=== PATIENT | male | born 1950 | race Caucasian/White ===

== ENCOUNTER 2018-09-02 11:38 | Emergency (ER) | payer MEDICARE, BC ==
--- NOTE | 2018-09-02 12:15 | XRAY Report ---
Reason: cough,sob Procedure Date: 09/02/2018 Accession Number: [id number] / [id number] Procedure: XR - Chest 2 View X-Ray CPT Code: 19907 FULL RESULT: EXAM: CHEST RADIOGRAPHY EXAM DATE: 09/02/2018 12:04 PM. CLINICAL HISTORY: Cough, sob. COMPARISON: None. TECHNIQUE: 2 views. FINDINGS: Lungs/Pleura: There is superior right lower lobe opacity suggestive of infiltrate. Mediastinum: Heart and mediastinal contours are unremarkable. Other: None. IMPRESSION: Superior right lower lobe infiltrate. RADIA
[2018-09-02] MEDS ORDERED: AZITHROMYCIN 250 MG TABLET PO STA (12:42)
--- NOTE | 2018-09-02 12:44 | ED Physician Documentation ---
PD HPI URI - Stated complaint Stated Complaint: CONGESTION,COUGH - Chief complaint Chief Complaint: Resp - History obtained from History obtained from: Patient - History of Present Illness Timing - onset: Other (He had a minimally productive cough without shortness of breath for the last 8 days. He had intermittent low-grade fevers. He has no history of heart or lung problems.) Review of Systems Ten Systems: 10 systems reviewed and negative Constitutional: reports: Fever. denies: Chills, Fatigue Nose: denies: Rhinorrhea / runny nose Throat: denies: Sore throat Cardiac: denies: Chest pain / pressure, Palpitations Respiratory: denies: Dyspnea PD PAST MEDICAL HISTORY - Past Medical History Past Medical History: No - Present Medications Home Medications: Ambulatory Orders Medication Instructions Recorded Confirmed Azithromycin 1 tab PO DAILY #4 tablet 09/02/18 guaiFENesin/CODEINE [Robitussin AC] 5 - 10 ml PO Q6H PRN #120 ml 09/02/18 - Allergies Allergies/Adverse Reactions: Allergies Allergy/AdvReac Type Severity Reaction Status Date / Time Penicillins Allergy Unknown Verified 09/02/18 11:45 - Living Situation Living Situation: reports: With spouse/s.o. PD ED PE NORMAL - Vitals Vital signs reviewed: Yes - General General: Alert and oriented X 3, No acute distress - HEENT HEENT: Pharynx benign - Neck Neck: Supple, no meningeal sign, No bony TTP - Cardiac Cardiac: RRR, No murmur - Respiratory Respiratory: No respiratory distress, Clear bilaterally - Abdomen Abdomen: Non tender - Neuro Neuro: Alert and oriented X 3, Normal speech Results - Vitals Vitals: Vital Signs - 24 hr 09/02/18 11:44 Temperature 37.0 C Heart Rate 75 Respiratory 20 Rate Blood Pressure 167/100 H O2 Saturation 97 Oxygen O2 Source Room air - Rads (name of study) 2v chest Radiology: EMP read contemporaneously (superior RLL PNA) Departure - Departure Disposition: 01 Home, Self Care Clinical Impression: Pneumonia Qualifiers: Pneumonia type: due to unspecified organism Laterality: right Lung location: lower lobe of lung Qualified Code(s): J18.1 - Lobar pneumonia, unspecified organism Condition: Good Record reviewed to determine appropriate education?: Yes Instructions: Pneumonia Dc Prescriptions: Azithromycin 1 tab PO DAILY #4 tablet guaiFENesin/CODEINE [Robitussin AC] 5 - 10 ml PO Q6H PRN #120 ml PRN Reason: Cough Comments: Call your doctor to arrange a follow-up appointment, make the next available appointment. In the interim, return anytime if worse or if new symptoms develop. Your blood pressure was elevated today on check into the emergency department. This does not mean that you have hypertension, it is a common phenomenon to come to the emergency department and have elevated blood pressure. I recommend that you see your primary care physician within the week to have it rechecked when you are feeling better.
[2018-09-02 12:58] VITALS: BP 131/96
== END 2018-09-02 12:57 | disposition home or self-care (01) ==
LOC: ED 11:38
DX: J18.1 Lobar pneumonia, unspecified organism (principal); R03.0 Elevated blood-pressure reading, without diagnosis of hypertension
CPT/HCPCS: 71046; 99283; A9270

== ENCOUNTER 2018-10-11 13:40 | Outpatient (CLI) | payer MEDICARE, BC ==
--- NOTE | 2018-10-11 15:29 | XRAY Report ---
Reason: PNEUMONIA Procedure Date: 10/11/2018 Accession Number: [id number] / [id number] Procedure: XR - Chest 2 View X-Ray CPT Code: 21044 FULL RESULT: EXAM: CHEST RADIOGRAPHY EXAM DATE: 10/11/2018 01:58 PM. CLINICAL HISTORY: PNEUMONIA. COMPARISON: CHEST 2 VIEW 09/02/2018 11:59 AM. TECHNIQUE: 2 views. FINDINGS: Lungs/Pleura: No focal opacities evident. No pleural effusion. No pneumothorax. Normal volumes. Mediastinum: Stable cardiomediastinal contour with tortuous aorta. Other: None. IMPRESSION: Radiographically, no evidence of pneumonia at this time. RADIA
== END 2018-10-11 13:41 | disposition home or self-care (01) ==
LOC: DI 13:40
PROVIDERS: ATTEND Internal Medicine
DX: J18.9 Pneumonia, unspecified organism (principal)
CPT/HCPCS: 71046

== ENCOUNTER 2019-01-15 10:00 | Outpatient (CLI) | payer MEDICARE, BC ==
--- NOTE | 2019-01-16 17:22 | XRAY Report ---
Reason: PAIN IN LEFT SHOULDER Procedure Date: 01/15/2019 Accession Number: [id number] / [id number] Procedure: XR - Shoulder 3 View LT CPT Code: FULL RESULT: EXAM: LEFT SHOULDER RADIOGRAPHY. EXAM DATE: 01/15/2019 10:11 AM. CLINICAL HISTORY: Pain in left shoulder. COMPARISON: None. TECHNIQUE: 3 views. FINDINGS: Bones: Normal. No fracture or bone lesion. Joints: The glenohumeral and acromioclavicular joints are normally aligned. Moderate acromioclavicular degenerative changes. Mild glenohumeral degenerative changes. Soft tissues: The visualized hemithorax is unremarkable. No soft tissue swelling. IMPRESSION: Mild to moderate degenerative changes about the shoulder without acute abnormality seen. RADIA
== END 2019-01-15 10:01 | disposition home or self-care (01) ==
LOC: DI 10:00
PROVIDERS: ATTEND Internal Medicine
DX: M19.012 Primary osteoarthritis, left shoulder (principal)

== ENCOUNTER 2020-03-27 12:28 | Emergency (ER) | payer MEDICARE, BC ==
--- NOTE | 2020-03-27 12:44 | ED Physician Documentation ---
PD HPI BACK PAIN - Stated complaint Stated Complaint: BACK PAIN - Chief complaint Chief Complaint: Back Pain - History obtained from History obtained from: Patient - History of Present Illness Timing - onset: Yesterday Timing - duration: Days (1) Timing - details: Abrupt onset, Still present Location: Lower Quality: Pain, Spasm, Sharp Associated symptoms: No: Fever, Weakness, Numbness, Incontinent of urine Worsened by: Lifting (he bent to lift a concrete block and felt abrupt onset of low lumbar pain when stood back up, and this has persisted with spasms too. Ibuprofen without imrpovement. Could not sleep due to pain. No radiation of it to legs. No weakness nor numbness.) Contributing factors: Lifting. No: Trauma, Anticoagulated, Cancer Similar symptoms before: Has not had sx before Recently seen: Not recently seen Review of Systems Constitutional: denies: Fever, Chills Nose: denies: Rhinorrhea / runny nose, Congestion Throat: denies: Sore throat Respiratory: denies: Cough GI: denies: Abdominal Pain, Nausea, Vomiting, Diarrhea : denies: Incontinent Skin: denies: Rash, Lesions Neurologic: denies: Focal weakness, Numbness PD PAST MEDICAL HISTORY - Past Medical History Cardiovascular: Hypertension Neuro: None Endocrine/Autoimmune: Type 2 diabetes GI: None - Past Surgical History Past Surgical History: No - Present Medications Home Medications: Ambulatory Orders Medication Instructions Recorded Confirmed HYDROcod/ACETAM 5/325 [[place] 5/325] 1 ea PO Q6H PRN #20 tablet 03/27/20 Semaglutide [Ozempic] 03/27/20 03/27/20 Valsartan [Diovan] 03/27/20 cloNIDine [Catapres] 03/27/20 metFORMIN [Glucophage] 03/27/20 tiZANidine [Zanaflex] 4 mg PO Q8H PRN #25 tablet 03/27/20 - Allergies Allergies/Adverse Reactions: Allergies Allergy/AdvReac Type Severity Reaction Status Date / Time Penicillins Allergy Unknown Verified 03/27/20 12:34 - Social History Does the pt smoke?: Yes Smoking Status: Current every day smoker Does the pt drink ETOH?: Yes ETOH Use: Liquor Does the pt have substance abuse?: No - Immunizations Immunizations are current?: Yes - POLST Patient has POLST: No PD ED PE NORMAL - Vitals Vital signs reviewed: Yes - General General: Alert and oriented X 3, Well developed/nourished, Other (appears in pain and is guarding ROM of the low back. ) - Cardiac Cardiac: RRR, No murmur - Respiratory Respiratory: Clear bilaterally - Abdomen Abdomen: Soft, Non tender - Back Back: No CVA TTP, Other (tender at mid to lower lumbar without deformity. No rash nor sores. Not really tender at lateral muscles. ) - Derm Derm: Normal color, Warm and dry - Extremities Extremities: No edema, No calf tenderness / cord - Neuro Neuro: Alert and oriented X 3, No motor deficit, No sensory deficit, Normal speech, Other (normal reflexes at the knees. ) Results - Vitals Vitals: Vital Signs - 24 hr 03/27/20 03/27/20 03/27/20 12:33 12:45 13:48 Temperature 35.7 C L 36.2 C L Heart Rate 77 78 75 Respiratory 16 16 16 Rate Blood Pressure 179/97 H 181/100 H 175/104 H O2 Saturation 98 97 97 Oxygen O2 Source Room air - Rads (name of study) lumbar CT Radiology: Prelim report reviewed (no acute fractures. Mild DDD most levels. ), See rad report PD MEDICAL DECISION MAKING - ED course Complexity details: reviewed results (no acute fractures nor acute injury appearance. Mild disc disease noted, c/w age. ), re-evaluated patient (feeling much improved with meds in ER. More relaxed for ROM of the back. ), considered differential (onset pain while lifting. No neuro symptoms. No history of cancer. Concern is abrupt onset, midline pain, and age. Will get imaging. ), d/w patient Departure - Departure Disposition: 01 Home, Self Care Clinical Impression: Lumbar strain Qualifiers: Encounter type: initial encounter Qualified Code(s): S39.012A - Strain of muscle, fascia and tendon of lower back, initial encounter Condition: Stable Record reviewed to determine appropriate education?: Yes Instructions: ED Sprain Strain Lumbar Follow-Up: Maxine Kerr MD [Primary Care Provider] - Prescriptions: HYDROcod/ACETAM 5/325 [[place] 5/325] 1 ea PO Q6H PRN #20 tablet PRN Reason: Pain tiZANidine [Zanaflex] 4 mg PO Q8H PRN #25 tablet PRN Reason: Spasms Comments: Your CT scan shows some arthritic changes and nonspecific mild disc abnormalities which are very common findings on CT scans. There was nothing that appeared acute and certainly no fractures. Presume some strain of the muscles and ligaments in the back. Heat and gentle stretching for the back. Massage or chiropractic are good as well. Use anti-inflammatory such as ibuprofen 3 times a day with food. To that add tizanidine muscle relaxant and hydrocodone pain medicine as needed. Recheck if not improving well over the next 3 to 5 days and resolved within a week or so. Return if worsening. Discharge Date/Time: 03/27/20 14:24
[2020-03-27] MEDS ORDERED: oxyCODONE 5 MG TABLET PO STA (12:53)
[2020-03-27] MEDS ORDERED: KETOROLAC 30 MG/ML VIAL IM STA (12:53)
[2020-03-27] MEDS ORDERED: methocarbamoL 500 MG TABLET PO STA (12:54)
[2020-03-27 13:49] VITALS: BP 175/104
--- NOTE | 2020-03-27 13:58 | CT Report ---
PROCEDURE: LUMBAR SPINE WO INDICATIONS: pain after lifting concrete block; midline pain TECHNIQUE: Noncontrast 3 mm thick sections acquired from the T12 level to the sacrum. Sagittal and coronal refo rmats were constructed. For radiation dose reduction, the following was used: automated exposure co ntrol, adjustment of mA and/or kV according to patient size. COMPARISON: None. FINDINGS: Image quality: Excellent. Bones: There is normal bony alignment. No acute vertebral body compression fractures. No suspiciou s lytic or blastic bony lesions. Central spinal caliber is of normal overall caliber. No pars defec ts. T12-L1: No significant disc bulge. The foramina and central canal are patent. L1-L2: No significant disc bulge. The foramina and central canal are patent. L2-L3: Diffuse disc bulge causes moderate bilateral foraminal stenosis. The central canal is paten t. L3-L4: Diffuse disc bulge causes mild bilateral foraminal stenosis. The central canal is patent. L4-L5: Diffuse disc bulge causes mild bilateral foraminal stenosis. There is ligamentum flavum hype rtrophy. The central canal has mild stenosis. L5-S1: No significant disc bulge. The foramina and central canal are patent. Soft tissues: No retroperitoneal masses or hematomas. The aorta has atherosclerotic calcifications w ith no aneurysmal dilatation or dissection IMPRESSION: 1. No acute abnormality of the lumbar spine. 2. Multilevel diffuse disc bulges with multilevel foraminal and central canal stenosis as above. 3. If there is no contraindication, the discs would be better evaluated with MRI. Reviewed by: Vlad Bliss on 03/27/2020 1:57 PM [facility] Approved by: Vlad Bliss on 03/27/2020 1:57 PM PST Station ID: [id number]
== END 2020-03-27 14:24 | disposition home or self-care (01) ==
LOC: ED 12:28
DX: S39.012A Strain of muscle, fascia and tendon of lower back, initial encounter (principal); X50.0XXA Overexertion from strenuous movement or load, initial encounter; Y93.89 Activity, other specified; M51.26 Other intervertebral disc displacement, lumbar region; M48.061 Spinal stenosis, lumbar region without neurogenic claudication; I10 Essential (primary) hypertension; E11.9 Type 2 diabetes mellitus without complications; Z79.84 Long term (current) use of oral hypoglycemic drugs; F17.200 Nicotine dependence, unspecified, uncomplicated
CPT/HCPCS: 72131; 96372; 99284; A9270

== ENCOUNTER 2020-03-30 08:00 | Outpatient (CLI) | payer MEDICARE, BC ==
[2020-03-30 18:41] LABS: BASOPHILS # (AUTO) 0.1 10^3/uL (0.0-0.1); BASOPHILS % (AUTO) 0.8 %; EOSINOPHILS # (AUTO) 0.4 10^3/uL (0.0-0.7); EOSINOPHILS % (AUTO) 3.6 %; HGB - HEMOGLOBIN 17.1 g/dL (14.0-18.0); LYMPHOCYTES # (AUTO) 1.8 10^3/uL (1.5-3.5); LYMPHOCYTES % (AUTO) 18.9 %; MEAN CORPUSCULAR HEMOGLOBIN 32.8 pg (27.0-31.0); MEAN CORPUSCULAR HGB CONC 33.5 g/dL (32.0-36.0); MEAN CORPUSCULAR VOLUME 97.7 fL (80.0-94.0); MEAN PLATELET VOLUME 10.7 fL (7.4-11.4); MONOCYTES # (AUTO) 0.9 10^3/uL (0.0-1.0); MONOCYTES % (AUTO) 9.5 %; NEUTROPHILS # (AUTO) 6.5 10^3/uL (1.5-6.6); NEUTROPHILS % (AUTO) 66.9 %; PLT - PLATELET COUNT 306 10^3/uL (130-450); RED BLOOD COUNT 5.22 10^6/uL (4.70-6.10); RED CELL DISTRIBUTION WIDTH 12.7 % (12.0-15.0); WHITE BLOOD COUNT 9.8 x10^3/uL (4.8-10.8)
[2020-03-30 19:10] LABS: ALBUMIN 4.2 g/dL (3.2-5.5); ALBUMIN/GLOBULIN RATIO 1.5 (1.0-2.2); ALKALINE PHOSPHATASE 46 IU/L (42-121); ALT ALANINE AMINOTRANSFERASE 21 IU/L (10-60); AST ASPARTATE AMINOTRANSFERASE 18 IU/L (10-42); BILIRUBIN,TOTAL 0.7 mg/dL (0.2-1.0); BUN - BLOOD UREA NITROGEN 17 mg/dL (6-20); CALCIUM 10.1 mg/dL (8.5-10.3); CARBON DIOXIDE - CO2 26 mmol/L (21-32); CHLORIDE 104 mmol/L (101-111); CHOL/HDL RATIO 4.1 (<5.0); CHOLESTEROL 178 mg/dL; CREATININE 1.3 mg/dL (0.6-1.2); GLUCOSE 117 mg/dL (70-100); HDL CHOLESTEROL 43 mg/dL; LDL CHOLESTEROL,CALCULATED 110 mg/dL; LDL/HDL RATIO 2.6 (<3.6); SODIUM 140 mmol/L (135-145); VLDL CHOLESTEROL 25 mg/dL
[2020-03-30 19:16] LABS: CREATININE,URINE 321.6 mg/dL; MICROALBUMIN,URINE 79.1 mg/dL (0-300.0)
[2020-03-31 21:23] LABS: HEMOGLOBIN A1c% 6.6 % (4.27-6.07)
== END 2020-03-30 08:01 | disposition home or self-care (01) ==
LOC: LAB.WCP 08:00
PROVIDERS: ATTEND Nurse Practitioner Family
DX: E11.9 Type 2 diabetes mellitus without complications (principal); I10 Essential (primary) hypertension; N40.0 Benign prostatic hyperplasia without lower urinary tract symptoms
CPT/HCPCS: 36415; 80053; 80061; 82043; 82570; 83036; 83721; 84443; 85025

== ENCOUNTER 2020-04-14 10:47 | Outpatient (CLI) | payer MEDICARE, BC ==
--- NOTE | 2020-04-14 14:19 | CT Report ---
PROCEDURE: Low Dose Lung Cancer Screen INDICATIONS: HX OF SMOKING TECHNIQUE: Noncontrast low-dose 5 mm thick sections acquired from the pulmonary apices to the posterior costophr enic angles. 7 mm thick coronal and sagittal MIP reformats were then acquired. For radiation dose r eduction, the following was used: automated exposure control, adjustment of mA and/or kV according t o patient size. COMPARISON: None. FINDINGS: Image quality: Excellent. Lungs and pleura: Question 4 mm pulmonary nodule versus vessel on end, left upper lobe, image 86/4. 2 mm pulmonary nodule, subpleural location, left lower lobe, image 177/4. 2 mm subpleural pulmonary n odule, left lower lobe, image 197/4. Ill-defined 4 mm pulmonary nodule, posterior right upper lobe, i mage 48/4. 3 mm pulmonary nodule, possibly calcified, right upper lobe, image 68/4. 2 mm pleural-base d pulmonary nodule, right lung base, image 137/4. Mediastinum: Heart size is normal. No pericardial effusion. No mediastinal adenopathy by size crit eria. Thoracic aorta and central pulmonary arteries are normal in size. Esophagus is normal in kojo sujatha. No hiatal hernia. Bones and chest wall: No suspicious bony lesions. No vertebral body compression fractures. No axil liyah or supraclavicular adenopathy by size criteria. The thyroid is normal in size. Abdomen: Visualized upper abdomen solid organs and bowel loops appear normal in the absence of contr ast. IMPRESSION: 1. LungRads Category 2: Benign appearance or behavior-nodules with a very low likelihood of becoming a clinically active cancer due to size or lack of growth. Multiple 4 mm or less pulmonary nodules saul aterally. 2. Annual follow-up low-dose noncontrast CT of the chest is recommended for lung cancer screening. Reviewed by: Joe Romano MD on 04/14/2020 2:17 PM PST Approved by: Joe Romano MD on 04/14/2020 2:17 PM PST Station ID: [id number]
== END 2020-04-14 10:48 | disposition home or self-care (01) ==
LOC: DI 10:47
PROVIDERS: ATTEND Nurse Practitioner Family
DX: Z12.2 Encounter for screening for malignant neoplasm of respiratory organs (principal); Z87.891 Personal history of nicotine dependence; R91.8 Other nonspecific abnormal finding of lung field
CPT/HCPCS: G0297 ×2

== ENCOUNTER 2020-05-08 08:30 | Emergency (ER) | payer MEDICARE, BC ==
--- NOTE | 2020-05-08 08:42 | ED Physician Documentation ---
PD HPI BACK PAIN - Stated complaint Stated Complaint: BACK PAIN - History obtained from History obtained from: Patient - History of Present Illness Timing - onset: How many days ago (2-3) Timing - duration: Days (2-3) Timing - details: Abrupt onset, Still present, Waxing and waning Location: Mid, Lower, Left Quality: Sharp, Other (stabbing from flank down to iliac crest area, just on left.) Associated symptoms: No: Fever, Weakness, Numbness, Incontinent of urine Improves with: Position (feels better lying on right side.). No: Rest Worsened by: Movement, Other (hurts most when lying on left side). No: Palpation Contributing factors: No: Lifting (no recurrent injury but had low back pain after lifting a month ago, had improved.), Twisting Similar symptoms before: Diagnosis (had more central back pain a month ago after lifting concrete block, felt musculoskeletal. with normal lumbar CT at that time. He says got better within few days of starting meds.) Recently seen: Clinic (office for chest pain few weeks ago, and had chest CT that was okay.), Emergency Dept (a month ago for back pain, with CT lumbar without acute findings.) Review of Systems Constitutional: denies: Fever, Chills Nose: denies: Rhinorrhea / runny nose, Congestion Throat: denies: Sore throat Respiratory: denies: Cough GI: denies: Abdominal Pain, Nausea, Vomiting, Diarrhea, Bloody / black stool : denies: Dysuria, Frequency Skin: denies: Rash, Lesions Neurologic: denies: Generalized weakness, Focal weakness, Numbness, Near syncope PD PAST MEDICAL HISTORY - Past Medical History Cardiovascular: Hypertension Neuro: None Endocrine/Autoimmune: Type 2 diabetes GI: None - Past Surgical History Past Surgical History: No - Present Medications Home Medications: Ambulatory Orders Medication Instructions Recorded Confirmed Semaglutide [Ozempic] 03/27/20 03/27/20 Valsartan [Diovan] 03/27/20 cloNIDine [Catapres] 03/27/20 metFORMIN [Glucophage] 03/27/20 HYDROcod/ACETAM 5/325 [[place] 5/325] 1 ea PO Q6H PRN #20 tablet 05/08/20 Losartan [Cozaar] 50 mg PO DAILY 05/08/20 05/08/20 Tamsulosin HCl [Flomax] 05/08/20 dexAMETHasone [Decadron] 4 mg PO DAILY #5 tablet 05/08/20 tiZANidine [Zanaflex] 4 mg PO Q8H PRN #25 tablet 05/08/20 - Allergies Allergies/Adverse Reactions: Allergies Allergy/AdvReac Type Severity Reaction Status Date / Time Penicillins Allergy Unknown Verified 05/08/20 08:50 - Social History Does the pt smoke?: Yes Smoking Status: Current every day smoker Does the pt drink ETOH?: Yes Does the pt have substance abuse?: No - Immunizations Immunizations are current?: Yes - POLST Patient has POLST: No PD ED PE NORMAL - Vitals Vital signs reviewed: Yes - General General: Alert and oriented X 3, Well developed/nourished, Other (does appear uncomfortable, particularly lying flat or to the left. ) - Cardiac Cardiac: RRR, No murmur - Respiratory Respiratory: Clear bilaterally - Abdomen Abdomen: Normal bowel sounds, Soft, Non tender, Non distended, No organomegaly - Male Male : Deferred - Rectal Rectal: Deferred - Back Back: No CVA TTP, No spinal TTP (has some tender in left muscles adjacent to upper lumbar. No point tenderness. ) - Derm Derm: Normal color, Warm and dry, No rash - Extremities Extremities: No tenderness to palpate, Normal ROM s pain, No edema, No calf tenderness / cord - Neuro Neuro: No motor deficit, No sensory deficit, Other (normal reflexes at knees. ) Results - Vitals Vitals: Vital Signs - 24 hr 05/08/20 08:47 Temperature 36.9 C Heart Rate 89 Respiratory 18 Rate Blood Pressure 181/111 H O2 Saturation 99 Oxygen O2 Source Room air - Labs Labs: Laboratory Tests 05/08/20 05/08/20 05/08/20 08:42 09:20 09:20 WBC 7.1 RBC 5.14 Hgb 16.6 Hct 49.0 MCV 95.3 H MCH 32.3 H MCHC 33.9 RDW 12.9 Plt Count 280 MPV 9.8 Neut # (Auto) 4.9 Lymph # (Auto) 1.3 L Dickson # (Auto) 0.6 Eos # (Auto) 0.2 Baso # (Auto) 0.1 Absolute Nucleated RBC 0.00 Nucleated RBC % 0.0 Sodium 138 Potassium 4.4 Chloride 106 Carbon Dioxide 21 Anion Gap 11.0 BUN 13 Creatinine 1.1 Estimated GFR (MDRD) 66 L Glucose 175 H Calcium 9.6 Total Bilirubin 0.7 AST 21 ALT 27 Alkaline Phosphatase 49 Total Protein 6.6 L Albumin 4.3 Globulin 2.3 Albumin/Globulin Ratio 1.9 Urine Color YELLOW Urine Clarity CLEAR Urine pH 5.5 Ur Specific [place] 1.025 Urine Protein 100 H Urine Glucose (UA) NEGATIVE Urine Ketones NEGATIVE Urine Occult Blood NEGATIVE Urine Nitrite NEGATIVE Urine Bilirubin NEGATIVE Urine Urobilinogen 0.2 (NORMAL) Ur Leukocyte Esterase NEGATIVE Urine RBC None Seen Urine WBC 0-3 Ur Squamous Epith Cells RARE Squamous Urine Bacteria Rare Urine Casts 0-2 Granular Casts Ur Microscopic Review INDICATED Urine Culture Comments NOT INDICATED - Rads (name of study) abd/pelvic CT Radiology: Prelim report reviewed (no acute process. no stones nor uropathy. Else normal as well. ), See rad report PD MEDICAL DECISION MAKING - ED course Complexity details: reviewed results (CT done inadvertently without contrast. Will wait for reading. Can rescan with if any concerns from reading. ), considered differential (consider musculoskeletal, kidney stone high likelihood, vascular, other abd process. Recent lumbar CT does not show enough of abd field of view to exclude matters right now. Pain has positional and movement components.), d/w patient Departure - Departure Disposition: 01 Home, Self Care Clinical Impression: Left lumbar pain Qualifiers: Chronicity: acute Sciatica presence: without sciatica Qualified Code(s): M54.5 - Low back pain Condition: Stable Record reviewed to determine appropriate education?: Yes Instructions: ED Low Back Pain Injury Follow-Up: PEDRITO PINON, MSN, HEALTH INFORMATION TECHNOLOGIST [Primary Care Provider] - Prescriptions: dexAMETHasone [Decadron] 4 mg PO DAILY #5 tablet HYDROcod/ACETAM 5/325 [[place] 5/325] 1 ea PO Q6H PRN #20 tablet PRN Reason: Pain tiZANidine [Zanaflex] 4 mg PO Q8H PRN #25 tablet PRN Reason: Spasms Comments: Your blood tests and urine tests are without any signs of infection nor acute changes. Your CT scan does not show any kidney stones, vascular process, or other intestinal problems. Your low back has similar arthritic changes but no acute fractures or abnormalities. At this point would presume musculoskeletal pain in the back. We can treated with anti-inflammatories as well as muscle relaxant and pain medicine, similar to March. See if this will improve over the next few days. Follow-up with your primary care if not improved over the next several days or so. Return if worsening or other symptoms develop such as abdominal pain, stool changes (diarrhea, bleeding, etc), rash, fever, other concerns. The [facility] pharmac[facility] are open today 9-5.
[2020-05-08] MEDS ORDERED: KETOROLAC 30 MG/ML VIAL IVP STA (08:43)
[2020-05-08] MEDS ORDERED: SODIUM CHLORIDE 0.9% 1,000 ML IV STA (08:43)
[2020-05-08] MEDS ORDERED: MORPHINE 2 MG/ML CARPUJECT IVP STA (08:43)
[2020-05-08 09:05] LABS: BILIRUBIN,URINE NEGATIVE (NEGATIVE); GLUCOSE, URINE (UA) NEGATIVE (NEGATIVE); KETONES,URINE (UA) NEGATIVE (NEGATIVE); LEUKOCYTE ESTERASE, URINE NEGATIVE (NEGATIVE); NITRITE,URINE NEGATIVE (NEGATIVE); OCCULT BLOOD,URINE NEGATIVE (NEGATIVE); PH,URINE 5.5 PH (5.0-7.5); PROTEIN,URINE 100 mg/dL (NEGATIVE); UROBILINOGEN,URINE 0.2 (NORMAL) E.U./dL (NORMAL)
[2020-05-08 09:07] LABS: CLARITY,URINE CLEAR (CLEAR)
[2020-05-08 09:16] LABS: BACTERIA,URINE Rare /HPF (None Seen); RBC,URINE None Seen /HPF (0-5); SQUAMOUS EPITHELIAL CELL,UR RARE Squamous (<= Few)
[2020-05-08 09:25] LABS: BASOPHILS # (AUTO) 0.1 10^3/uL (0.0-0.1); BASOPHILS % (AUTO) 0.7 %; EOSINOPHILS # (AUTO) 0.2 10^3/uL (0.0-0.7); EOSINOPHILS % (AUTO) 2.7 %; HGB - HEMOGLOBIN 16.6 g/dL (14.0-18.0); LYMPHOCYTES # (AUTO) 1.3 10^3/uL (1.5-3.5); LYMPHOCYTES % (AUTO) 18.8 %; MEAN CORPUSCULAR HEMOGLOBIN 32.3 pg (27.0-31.0); MEAN CORPUSCULAR HGB CONC 33.9 g/dL (32.0-36.0); MEAN CORPUSCULAR VOLUME 95.3 fL (80.0-94.0); MEAN PLATELET VOLUME 9.8 fL (7.4-11.4); MONOCYTES # (AUTO) 0.6 10^3/uL (0.0-1.0); MONOCYTES % (AUTO) 8.6 %; NEUTROPHILS # (AUTO) 4.9 10^3/uL (1.5-6.6); NEUTROPHILS % (AUTO) 68.8 %; PLT - PLATELET COUNT 280 10^3/uL (130-450); RED BLOOD COUNT 5.14 10^6/uL (4.70-6.10); RED CELL DISTRIBUTION WIDTH 12.9 % (12.0-15.0); WHITE BLOOD COUNT 7.1 x10^3/uL (4.8-10.8)
[2020-05-08 09:38] LABS: ALBUMIN 4.3 g/dL (3.2-5.5); ALBUMIN/GLOBULIN RATIO 1.9 (1.0-2.2); BILIRUBIN,TOTAL 0.7 mg/dL (0.2-1.0); CALCIUM 9.6 mg/dL (8.5-10.3); CREATININE 1.1 mg/dL (0.6-1.2); TOTAL PROTEIN 6.6 g/dL (6.7-8.2)
--- NOTE | 2020-05-08 09:51 | CT Report ---
PROCEDURE: Abdomen/Pelvis WO INDICATIONS: LT FLANK TO ABD PAIN FOR 3 DAYS TECHNIQUE: Noncontrast 5 mm thick sections acquired from the diaphragms to the symphysis. 5 mm coronal and sagi ttal reformats were then performed. For radiation dose reduction, the following was used: automated exposure control, adjustment of mA and/or kV according to patient size. COMPARISON: Correlation is made with the prior lumbar spine CT, 03/27/2020. FINDINGS: Image quality: Excellent. ABDOMEN: Lung bases: Lung bases are clear. Heart size is normal. A small hiatal hernia is incidentally note d. Solid organs: Liver and spleen are normal in size. Within the central liver, there is a focal low-de nsity lesion seen, as on series 3 image 37, which likely represents a cyst or hemangioma. Gallbladder wall does not appear thickened. Pancreas is normal in contours. No adrenal nodules. Calcificati on is seen of the lateral limb of the right adrenal gland, as on series 3 image 39. Kidneys are sixto l in size, without hydronephrosis or nephrolithiasis. Peritoneum and bowel: Unenhanced bowel loops demonstrate normal wall thickness and caliber. No free fluid or air. An apparent normal stump of the appendix can be seen. Please correlate with known ruba ent history. Diverticulosis can be seen, without brenda findings of active diverticulitis. Nodes and vessels: No retroperitoneal or mesenteric adenopathy by size criteria. Aorta and inferior vena cava are normal in caliber. Atherosclerotic calcification is seen. Miscellaneous: No ventral hernias. PELVIS: Genitourinary: Bladder wall thickness is normal. Miscellaneous: No inguinal adenopathy. There is a left-sided inguinal hernia seen, which primarily contains fat, although a small amount of nondilated small bowel can be seen proximally. Bones: No suspicious bony lesions. No vertebral body compression fractures. Age-appropriate degener ative changes are seen. IMPRESSION: Negative for stones or obstructive uropathy. There is a left inguinal hernia, which contains fat and a small amount of nondilated small bowel. Incidental note is made of: Small hiatal hernia Apparent liver cyst or hemangioma Apparent appendiceal stump. Diverticulosis, without active diverticulitis Reviewed by: Kumar Wharton MD on 05/08/2020 8:49 AM [place] Approved by: Kumar Wharton MD on 05/08/2020 8:49 AM [facility] Station ID: [id number]
[2020-05-08] MEDS ORDERED: DEXAMETHASONE 10 MG/ML VIAL IVP STA (10:07)
[2020-05-08 10:12] VITALS: BP 176/97
== END 2020-05-08 10:24 | disposition home or self-care (01) ==
LOC: ED 08:30
DX: M54.5 Low back pain (principal); I10 Essential (primary) hypertension; E11.9 Type 2 diabetes mellitus without complications; Z79.84 Long term (current) use of oral hypoglycemic drugs; F17.200 Nicotine dependence, unspecified, uncomplicated
CPT/HCPCS: 36415; 74176; 80053; 81001; 81003; 85025; 87086; 96361; 96374; 96375; 99284

== ENCOUNTER 2020-07-23 13:30 | Outpatient (CLI) | payer MEDICARE, BC ==
[2020-07-23 14:01] LABS: CALCIUM 10.7 mg/dL (8.5-10.3); CREATININE 1.2 mg/dL (0.6-1.2); POTASSIUM 4.5 mmol/L (3.5-5.0)
[2020-07-23 14:32] LABS: MICROALBUM/CREATININE RATIO,UR 462.9 ug/mg (<30.0); MICROALBUMIN,URINE 132.4 mg/dL (0-300.0)
[2020-07-23 19:52] LABS: ESTIMATED AVERAGE GLUCOSE 146 mg/dL (70-100); HEMOGLOBIN A1c% 6.7 % (4.27-6.07)
== END 2020-07-23 13:31 | disposition home or self-care (01) ==
LOC: LAB 13:30
PROVIDERS: ATTEND Nurse Practitioner Family
DX: E11.9 Type 2 diabetes mellitus without complications (principal)
CPT/HCPCS: 36415; 80048; 82043; 82570; 83036

== ENCOUNTER 2020-10-21 08:46 | Outpatient (CLI) | payer MEDICARE, BC ==
[2020-10-21 09:20] LABS: POTASSIUM 4.6 mmol/L (3.5-5.0)
[2020-10-21 09:35] LABS: CREATININE,URINE 184.1 mg/dL; MICROALBUM/CREATININE RATIO,UR 430.2 ug/mg (<30.0); MICROALBUMIN,URINE 79.2 mg/dL (0-300.0)
[2020-10-21 12:07] LABS: ESTIMATED AVERAGE GLUCOSE 146 mg/dL (70-100); HEMOGLOBIN A1c% 6.7 % (4.27-6.07)
== END 2020-10-21 08:47 | disposition home or self-care (01) ==
LOC: LAB 08:46
PROVIDERS: ATTEND Nurse Practitioner Family
DX: E11.9 Type 2 diabetes mellitus without complications (principal)
CPT/HCPCS: 36415; 80048; 82043; 82570; 83036

== ENCOUNTER 2020-12-14 16:42 | Emergency (ER) | payer MEDICARE, BC ==
[2020-12-14] MEDS ORDERED: KETOROLAC 60 MG/2 ML VIAL IM STA (17:44)
[2020-12-14] MEDS ORDERED: DEXAMETHASONE 10 MG/ML VIAL PO STA (17:44)
[2020-12-14] MEDS ORDERED: CHERRY SYRUP 10 ML UDC PO ONE (17:44)
--- NOTE | 2020-12-14 17:44 | ED Physician Documentation ---
PD HPI BACK PAIN - Stated complaint Stated Complaint: BACK MUSCLE SPASMS - Chief complaint Chief Complaint: Back Pain - History obtained from History obtained from: Patient - History of Present Illness Timing - onset: Today Timing - duration: Days (1) Timing - details: Gradual onset Pain level max: 5 Pain level now: 4 Location: Lower, Left Quality: Pain, Spasm, Similar to prior episodes Associated symptoms: No: Fever, Weakness, Numbness, Incontinent of urine, Unable to urinate, Hematuria, Incontinent of stool Improves with: Rest Worsened by: Movement Contributing factors: No: Lifting, Twisting, Trauma, Anticoagulated, Cancer, IVDA Recently seen: Not recently seen - Additional information Additional information: Patient is a 70-year-old male with lower left back pain. Similar to prior episodes. No recent injuries. Worse with movement, better with rest. Increased today. Has had CT scans and full work-ups in the past with no cause found. Patient states resolved in a few days with pain medication and muscle relaxants last time. No fevers. No chills. No numbness or tingling. No loss of bowel or bladder control. Review of Systems Constitutional: denies: Fever Respiratory: denies: Cough GI: denies: Abdominal Pain, Vomiting, Diarrhea : denies: Dysuria, Frequency, Hesitancy, Incontinent, Hematuria Skin: denies: Rash Neurologic: denies: Focal weakness PD PAST MEDICAL HISTORY - Past Medical History Past Medical History: Yes Cardiovascular: Hypertension Neuro: None Endocrine/Autoimmune: Type 2 diabetes GI: None - Past Surgical History Past Surgical History: No - Present Medications Home Medications: Ambulatory Orders Medication Instructions Recorded Confirmed Semaglutide [Ozempic] 03/27/20 03/27/20 Valsartan [Diovan] 03/27/20 cloNIDine [Catapres] 03/27/20 metFORMIN [Glucophage] 03/27/20 HYDROcod/ACETAM 5/325 [[place] 5/325] 1 ea PO Q6H PRN #20 tablet 05/08/20 Losartan [Cozaar] 50 mg PO DAILY 05/08/20 05/08/20 Tamsulosin HCl [Flomax] 05/08/20 dexAMETHasone [Decadron] 4 mg PO DAILY #5 tablet 05/08/20 tiZANidine [Zanaflex] 4 mg PO Q8H PRN #25 tablet 05/08/20 HYDROcod/ACETAM 5/325 [[place] 5/325] 1 - 2 ea PO Q6H PRN #14 tablet 12/14/20 Meloxicam [Mobic] 7.5 mg PO BID PRN #20 tablet 12/14/20 methocarbamoL [Robaxin] 500 mg PO Q6H PRN #20 tablet 12/14/20 - Allergies Allergies/Adverse Reactions: Allergies Allergy/AdvReac Type Severity Reaction Status Date / Time Penicillins Allergy Unknown Verified 12/14/20 16:53 - Social History Does the pt smoke?: Yes Smoking Status: Current every day smoker Does the pt drink ETOH?: Yes Does the pt have substance abuse?: No - Immunizations Immunizations are current?: Yes - POLST Patient has POLST: No PD ED PE NORMAL - Vitals Vital signs reviewed: Yes - General General: Alert and oriented X 3, No acute distress - HEENT HEENT: PERRL, Moist mucous membranes - Neck Neck: Supple, no meningeal sign - Cardiac Cardiac: RRR, Strong equal pulses - Respiratory Respiratory: No respiratory distress, Clear bilaterally - Abdomen Abdomen: Soft, Non tender, Non distended - Back Back: No spinal TTP (No midline tenderness to palpation or percussion. No step- off or deformity. Mild spasm left lower lumbar.) - Derm Derm: Warm and dry - Extremities Extremities: No edema, No calf tenderness / cord - Neuro Neuro: Alert and oriented X 3, No motor deficit, No sensory deficit, Other (Normal bilateral lower extremity patellar and ankle jerk reflexes. Normal great toe extension bilaterally. no saddle anesthesia) - Psych Psych: Normal mood, Normal affect Results - Vitals Vitals: Vital Signs - 24 hr 12/14/20 12/14/20 16:51 18:11 Temperature 36.2 C L 36.5 C Heart Rate 89 82 Respiratory 16 16 Rate Blood Pressure 151/92 H 169/98 H O2 Saturation 97 97 Oxygen O2 Source Room air PD MEDICAL DECISION MAKING - ED course Complexity details: reviewed old records, considered differential (No cauda equina, no spinal epidural abscess, no fracture, no aortic dissection or evidence of aneursym rupture), d/w patient, d/w family ED course: Patient with nontraumatic back spasm. Similar to prior episodes. We will place on pain medication muscle relaxants for home. No evidence of cauda equina, epidural abscess. No evidence of fracture. No falls. No trauma. Ambulating well. Patient counseled regarding signs and symptoms for which I believe and urgent re-evaluation would be necessary. Patient with good understanding of and agreement to plan and is comfortable going home at this time This document was made in part using voice recognition software. While efforts are made to proofread this document, sound alike and grammatical errors may occur. Departure - Departure Disposition: 01 Home, Self Care Clinical Impression: Back spasm Condition: Good Instructions: ED Spasm Back No Trauma Follow-Up: your,doctor in 1 week [Other] Prescriptions: Meloxicam [Mobic] 7.5 mg PO BID PRN #20 tablet PRN Reason: Pain HYDROcod/ACETAM 5/325 [[place] 5/325] 1 - 2 ea PO Q6H PRN #14 tablet PRN Reason: Pain methocarbamoL [Robaxin] 500 mg PO Q6H PRN #20 tablet PRN Reason: muscle spasm Comments: You can use the pain medication as needed. Follow-up with your doctor for further care. This should improve over the next few days. I am prescribing a short course of narcotic pain medication for you. These are potentially dangerous and addictive medications that should be used carefully. These medications may constipate you. Take an ufvy-djy-fuvyvub stool softener (docusate) twice daily with plenty of water while taking these medications. If you go 24 hours without a bowel movement, take lbuk-yig-jupjwek miralax, per package instructions. Do not drink or drive while taking these medications. If you received narcotic or sedating medications while in the emergency department, do not drive for 24 hours. Store this medication in a safe, secure place and out of reach of children. It is a violation of federal law to give or sell this medication to another person or to use in a manner other than prescribed. The ED will not refill narcotic prescriptions, including prescriptions lost or stolen. To dispose of unwanted medications: 1. [facility] [address] in [place] has a medication drop box. They accept prescription medications (in pill form) Monday through Monday 9:00 a.m. to 5:00 p.m. 2. [facility] [employer] [facility] accepts prescription medications (in pill form only) for disposal year round. Call for more information. 3. Contact the [facility] for the next [facility] sponsored prescription drug collection event. , [phone], or [phone]; Discharge Date/Time: 12/14/20 18:22
[2020-12-14 18:12] VITALS: BP 169/98
== END 2020-12-14 18:22 | disposition home or self-care (01) ==
LOC: ED 16:42
DX: M62.830 Muscle spasm of back (principal); I10 Essential (primary) hypertension; E11.9 Type 2 diabetes mellitus without complications; F17.200 Nicotine dependence, unspecified, uncomplicated; Z79.84 Long term (current) use of oral hypoglycemic drugs
CPT/HCPCS: 96372; 99283; 99284; A9270

== ENCOUNTER 2021-02-12 10:44 | Outpatient (CLI) | payer MEDICARE, BC ==
[2021-02-12 18:08] LABS: BASOPHILS # (AUTO) 0.1 10^3/uL (0.0-0.1); EOSINOPHILS # (AUTO) 0.4 10^3/uL (0.0-0.7); EOSINOPHILS % (AUTO) 4.6 %; HGB - HEMOGLOBIN 16.6 g/dL (14.0-18.0); LYMPHOCYTES # (AUTO) 1.8 10^3/uL (1.5-3.5); LYMPHOCYTES % (AUTO) 20.6 %; MEAN CORPUSCULAR HGB CONC 33.2 g/dL (32.0-36.0); MEAN CORPUSCULAR VOLUME 96.5 fL (80.0-94.0); MEAN PLATELET VOLUME 10.7 fL (7.4-11.4); MONOCYTES # (AUTO) 0.7 10^3/uL (0.0-1.0); MONOCYTES % (AUTO) 7.9 %; NEUTROPHILS # (AUTO) 5.7 10^3/uL (1.5-6.6); NEUTROPHILS % (AUTO) 65.6 %; PLT - PLATELET COUNT 339 10^3/uL (130-450); RED BLOOD COUNT 5.18 10^6/uL (4.70-6.10); WHITE BLOOD COUNT 8.7 x10^3/uL (4.8-10.8)
[2021-02-12 18:43] LABS: BILIRUBIN,URINE NEGATIVE (NEGATIVE); GLUCOSE, URINE (UA) NEGATIVE (NEGATIVE); KETONES,URINE (UA) NEGATIVE (NEGATIVE); LEUKOCYTE ESTERASE, URINE NEGATIVE (NEGATIVE); NITRITE,URINE NEGATIVE (NEGATIVE); OCCULT BLOOD,URINE NEGATIVE (NEGATIVE); PH,URINE 5.5 PH (5.0-7.5); PROTEIN,URINE 100 mg/dL (NEGATIVE); UROBILINOGEN,URINE 0.2 (NORMAL) E.U./dL (NORMAL)
[2021-02-12 18:51] LABS: CLARITY,URINE CLOUDY (CLEAR)
[2021-02-12 18:58] LABS: ALBUMIN 4.4 g/dL (3.2-5.5); ALBUMIN/GLOBULIN RATIO 1.9 (1.0-2.2); ALKALINE PHOSPHATASE 54 IU/L (42-121); ALT ALANINE AMINOTRANSFERASE 19 IU/L (10-60); AST ASPARTATE AMINOTRANSFERASE 17 IU/L (10-42); BILIRUBIN,TOTAL 0.5 mg/dL (0.2-1.0); BUN - BLOOD UREA NITROGEN 24 mg/dL (6-20); CARBON DIOXIDE - CO2 22 mmol/L (21-32); CHLORIDE 107 mmol/L (101-111); CHOL/HDL RATIO 4.2 (<5.0); CHOLESTEROL 194 mg/dL; CREATININE 1.1 mg/dL (0.6-1.2); GFR - MDRD 66 (>89); GLUCOSE 154 mg/dL (70-100); HDL CHOLESTEROL 46 mg/dL; LDL CHOLESTEROL,CALCULATED 129 mg/dL; LDL/HDL RATIO 2.8 (<3.6); SODIUM 140 mmol/L (135-145); TOTAL PROTEIN 6.7 g/dL (6.7-8.2); TRIGLYCERIDES 93 mg/dL; VLDL CHOLESTEROL 19 mg/dL
[2021-02-12 18:59] LABS: AMORPHOUS SEDIMENT,UR Marked /LPF; BACTERIA,URINE None Seen /HPF (None Seen); RBC,URINE None Seen /HPF (0-5); SQUAMOUS EPITHELIAL CELL,UR NONE SEEN (<= Few); WBC,URINE 0-3 /HPF (0-3)
[2021-02-12 19:08] LABS: CREATININE,URINE 199.8 mg/dL; MICROALBUM/CREATININE RATIO,UR 258.8 ug/mg (<30.0); MICROALBUMIN,URINE 51.7 mg/dL (0-300.0)
[2021-02-12 20:13] LABS: ESTIMATED AVERAGE GLUCOSE 148 mg/dL (70-100); HEMOGLOBIN A1c% 6.8 % (4.27-6.07)
== END 2021-02-12 23:59 | disposition home or self-care (01) ==
LOC: LAB.WCP 10:44
PROVIDERS: ATTEND Nurse Practitioner
DX: E11.9 Type 2 diabetes mellitus without complications (principal); I10 Essential (primary) hypertension; R80.9 Proteinuria, unspecified
CPT/HCPCS: 36415; 80053; 80061; 81001; 82043; 82570; 83036; 83721; 85025; 87086

== ENCOUNTER 2021-06-10 11:49 | Emergency (ER) | payer MEDICARE, BC ==
[2021-06-10 11:57] VITALS: BP 143/89
--- NOTE | 2021-06-10 12:23 | XRAY Report ---
PROCEDURE: Chest 1 View X-Ray INDICATIONS: cough for one month TECHNIQUE: One view of the chest was acquired. COMPARISON: Lung cancer screening chest CT 04/14/2020. CXR 10/11/2018. FINDINGS: Surgical changes and devices: None. Lungs and pleura: No pleural effusions or pneumothorax. Lungs are clear. Mediastinum: Mediastinal contours appear unchanged. Heart size is normal. Bones and chest wall: No suspicious bony lesions. Overlying soft tissues appear unremarkable. IMPRESSION: No acute cardiopulmonary abnormality. Reviewed by: Eric Hurt MD on 06/10/2021 12:22 PM PST Approved by: Eric Hurt MD on 06/10/2021 12:22 PM [facility] Station ID: [id number]
--- NOTE | 2021-06-10 14:43 | ED Physician Documentation ---
History of Present Illness - Stated complaint Stated Complaint: COUGH,CHILLS - Chief complaint Chief Complaint: Resp - Additonal information Additional information: 71-year-old male presents emergency department for evaluation of a mostly dry cough that began about 1 month ago. It is fairly persistent throughout the day though decreased at nighttime. There have been no fevers. Denies exertional chest pain dyspnea or shortness of air. He is a daily tobacco user. He denies that he is ever been diagnosed with asthma or COPD. He does have a history of hypertension. Fully vaccinated for COVID-19. Patient states that he has taken some leftover codeine syrup which improves the cough until it wears off. He comes to the emergency department because he states it is too difficult to get an appointment with his primary care provider. Review of Systems Constitutional: denies: Fever, Chills Eyes: reports: Reviewed and negative Ears: reports: Reviewed and negative Throat: reports: Reviewed and negative Cardiac: reports: Reviewed and negative Respiratory: reports: Cough. denies: Dyspnea, Hemoptysis, Wheezing GI: denies: Abdominal Pain : reports: Reviewed and negative Skin: reports: Reviewed and negative Musculoskeletal: reports: Reviewed and negative Neurologic: reports: Reviewed and negative PD PAST MEDICAL HISTORY - Past Medical History Past Medical History: Yes Cardiovascular: Hypertension Neuro: None Endocrine/Autoimmune: Type 2 diabetes GI: None - Past Surgical History Past Surgical History: No - Present Medications Home Medications: Ambulatory Orders Medication Instructions Recorded Confirmed Semaglutide [Ozempic] 03/27/20 03/27/20 Valsartan [Diovan] 03/27/20 cloNIDine [Catapres] 03/27/20 metFORMIN [Glucophage] 03/27/20 HYDROcod/ACETAM 5/325 [[place] 5/325] 1 ea PO Q6H PRN #20 tablet 05/08/20 Losartan [Cozaar] 50 mg PO DAILY 05/08/20 05/08/20 Tamsulosin HCl [Flomax] 05/08/20 dexAMETHasone [Decadron] 4 mg PO DAILY #5 tablet 05/08/20 tiZANidine [Zanaflex] 4 mg PO Q8H PRN #25 tablet 05/08/20 HYDROcod/ACETAM 5/325 [[place] 5/325] 1 - 2 ea PO Q6H PRN #14 tablet 12/14/20 Meloxicam [Mobic] 7.5 mg PO BID PRN #20 tablet 12/14/20 methocarbamoL [Robaxin] 500 mg PO Q6H PRN #20 tablet 12/14/20 Azithromycin [Zithromax] 0 mg PO DAILY #6 tablet 06/10/21 Benzonatate [Tessalon] 200 mg PO TID PRN #20 cap 06/10/21 - Allergies Allergies/Adverse Reactions: Allergies Allergy/AdvReac Type Severity Reaction Status Date / Time Penicillins Allergy Unknown Verified 06/10/21 11:57 - Social History Does the pt smoke?: Yes Smoking Status: Current every day smoker Does the pt drink ETOH?: Yes Does the pt have substance abuse?: No - Immunizations Immunizations are current?: Yes - POLST Patient has POLST: No PD ED PE NORMAL - General General: Alert and oriented X 3, No acute distress - HEENT HEENT: PERRL - Neck Neck: Supple, no meningeal sign, No adenopathy - Cardiac Cardiac: RRR, No murmur, No gallop, Strong equal pulses - Respiratory Respiratory: No respiratory distress, Clear bilaterally - Abdomen Abdomen: Normal bowel sounds, Soft, Non tender Results - Vitals Vitals: Vital Signs - 24 hr 06/10/21 11:54 Temperature 36.0 C L Heart Rate 79 Respiratory 20 Rate Blood Pressure 143/89 H O2 Saturation 99 Oxygen O2 Source Room air - Rads (name of study) cxr Radiology: Final report received (no acute process) PD MEDICAL DECISION MAKING - ED course Complexity details: reviewed results, re-evaluated patient, considered differential, d/w patient ED course: 71-year-old male presents emergency department for evaluation of a persistent cough that began about 1 month ago. No fevers no nausea or vomiting no chest pain. Chest x-ray is unremarkable. Patient is fully vaccinated though not posted for COVID-19. He is an active daily tobacco user but denies that he carries any history of COPD. Does not use any respiratory medications. Cardiopulmonary auscultation was unremarkable. I discussed the etiology of a more persistent cough with this gentleman that could include [place] inhibitor versus developing COPD. Patient will be discharged with a prescription for azithromycin as well as Tessalon Perles. He is encouraged close follow-up with his primary care doctor. He may benefit from a outpatient CT scan given his active tobaccoism. He would also benefit from pulmonary function testing to evaluate for the development of COPD and/or consideration of initiation of inhalers. Emergent return precautions were otherwise discussed. Departure - Departure Disposition: 01 Home, Self Care Clinical Impression: Cough Condition: Stable Record reviewed to determine appropriate education?: Yes Prescriptions: Benzonatate [Tessalon] 200 mg PO TID PRN #20 cap PRN Reason: Cough Azithromycin [Zithromax] 0 mg PO DAILY #6 tablet Comments: Andrea black are seen in the emergency department today for cough that has been ongoing for about 1 month. You describe it is mostly a dry cough. The chest x- ray does not show an obvious pneumonia. Any cough that goes on this long should be evaluated by primary care provider. However today I am going to start you on a short course of antibiotics for a possible bronchitis. I am also prescribing a medication called Rocio Sorto t o help with the cough. These 2 prescriptions have been sent to the [facility] in [place]. One consideration for prolonged cough is the possible development of COPD especially since you are an active tobacco user. There are also some medications such as [place] inhibitors that can cause a prolonged cough. It is important that you discuss this with your primary care doctor before making any changes to your medication. Schedule an appointment as soon as you are able. If at any point you develop difficulty breathing, have chest pain or fainting episodes then you are to return immediately to the ER for second evaluation.
== END 2021-06-10 14:45 | disposition home or self-care (01) ==
LOC: ED 11:49
DX: R05.9 Cough, unspecified (principal); Z72.0 Tobacco use; I10 Essential (primary) hypertension; E11.9 Type 2 diabetes mellitus without complications; Z79.84 Long term (current) use of oral hypoglycemic drugs
CPT/HCPCS: 71045; 99282; 99284; U0004

== ENCOUNTER 2021-07-20 14:10 | Outpatient (CLI) | payer MEDICARE, BC ==
[2021-07-20 14:45] LABS: ALBUMIN 4.5 g/dL (3.2-5.5); ALBUMIN/GLOBULIN RATIO 1.5 (1.0-2.2); ALKALINE PHOSPHATASE 51 IU/L (42-121); ALT ALANINE AMINOTRANSFERASE 26 IU/L (10-60); AST ASPARTATE AMINOTRANSFERASE 18 IU/L (10-42); BILIRUBIN,TOTAL 0.9 mg/dL (0.2-1.0); BUN - BLOOD UREA NITROGEN 21 mg/dL (6-20); CARBON DIOXIDE - CO2 29 mmol/L (21-32); CHLORIDE 98 mmol/L (101-111); CHOL/HDL RATIO 3.9 (<5.0); CHOLESTEROL 197 mg/dL; CREATININE 1.3 mg/dL (0.6-1.2); GFR - MDRD 54 (>89); GLUCOSE 143 mg/dL (70-100); HDL CHOLESTEROL 51 mg/dL; LDL CHOLESTEROL,CALCULATED 122 mg/dL; LDL/HDL RATIO 2.4 (<3.6); POTASSIUM 4.2 mmol/L (3.5-5.0); SODIUM 136 mmol/L (135-145); TOTAL PROTEIN 7.5 g/dL (6.7-8.2); TRIGLYCERIDES 119 mg/dL; VLDL CHOLESTEROL 24 mg/dL
[2021-07-20 20:08] LABS: ESTIMATED AVERAGE GLUCOSE 169 mg/dL (70-100); HEMOGLOBIN A1c% 7.5 % (4.27-6.07)
== END 2021-07-20 14:11 | disposition home or self-care (01) ==
LOC: LAB 14:10
PROVIDERS: ATTEND Nurse Practitioner
DX: E11.9 Type 2 diabetes mellitus without complications (principal); E78.5 Hyperlipidemia, unspecified
CPT/HCPCS: 36415; 80053; 80061; 83036; 83721

== ENCOUNTER 2021-11-19 10:04 | Outpatient (CLI) | payer MEDICARE, BC ==
[2021-11-19 13:01] LABS: ALBUMIN 4.5 g/dL (3.2-5.5); ALBUMIN/GLOBULIN RATIO 1.6 (1.0-2.2); BILIRUBIN,TOTAL 1.1 mg/dL (0.2-1.0); CALCIUM 10.3 mg/dL (8.5-10.3); CREATININE 1.2 mg/dL (0.6-1.2); POTASSIUM 4.9 mmol/L (3.5-5.0); TOTAL PROTEIN 7.4 g/dL (6.7-8.2)
[2021-11-19 13:58] LABS: ESTIMATED AVERAGE GLUCOSE 120 mg/dL (70-100); HEMOGLOBIN A1c% 5.8 % (4.27-6.07)
== END 2021-11-19 10:05 | disposition home or self-care (01) ==
LOC: LAB.N 10:04
PROVIDERS: ATTEND Nurse Practitioner
DX: E11.9 Type 2 diabetes mellitus without complications (principal)
CPT/HCPCS: 36415; 80053; 83036

== ENCOUNTER 2021-12-03 07:51 | Outpatient (CLI) | payer MEDICARE, BC ==
--- NOTE | 2021-12-03 14:31 | Ultrasound Report ---
PROCEDURE: Abdomen Limited INDICATIONS: TYPE 2 DIABETES MELLITUS TECHNIQUE: Real-time scanning was performed of the abdominal and retroperitoneal organs, with image documentatio n. COMPARISON: None. FINDINGS: Liver: Liver is enlarged measuring 19.0 cm. There is a cluster of hypoechoic foci in the superior lo be measuring 27 x 16 x 24 mm, similar focus in the right mid lobe measuring 16 x 15 x 14 mm and in th e inferior left lobe on the right measuring 8 x 7 x 6 mm Gallbladder: No stones are identified. Wall thickness is normal measuring 2.3 cm. Biliary ducts: Intrahepatic bile ducts are non-dilated. Extrahepatic bile duct caliber measures 3.0 mm. Normal is 6-7 mm or less in diameter, or 10 mm or less post-cholecystectomy. Pancreas: Visualized portions of the pancreas are sonographically normal. Kidneys: Right kidney measures 11.0 cm long. No hydronephrosis or nephrolithiasis. No solid masses . Simple renal cysts are identified the largest measuring 11 x 13 x 13 mm. Aorta: Visualized aorta is normal in caliber at less than 3 cm. IMPRESSION: Mild hepatomegaly. Clusters of hypoechogenicity within the liver most suggestive of cysts. Simple renal cysts. Reviewed by: Chelly Santana MD on 12/03/2021 2:30 PM PDT Approved by: Chelly Santana MD on 12/03/2021 2:30 PM PDT Station ID: [id number]
== END 2021-12-03 07:52 | disposition home or self-care (01) ==
LOC: DI 07:51
PROVIDERS: ATTEND Nurse Practitioner
DX: E11.9 Type 2 diabetes mellitus without complications (principal); R16.0 Hepatomegaly, not elsewhere classified; N28.1 Cyst of kidney, acquired

== ENCOUNTER 2022-02-14 11:29 | Outpatient (CLI) | payer MEDICARE, BC ==
[2022-02-14 18:05] LABS: BASOPHILS # (AUTO) 0.1 10^3/uL (0.0-0.1); BASOPHILS % (AUTO) 0.7 %; EOSINOPHILS # (AUTO) 0.2 10^3/uL (0.0-0.7); EOSINOPHILS % (AUTO) 2.5 %; HCT - HEMATOCRIT 50.5 % (42.0-52.0); HGB - HEMOGLOBIN 16.7 g/dL (14.0-18.0); LYMPHOCYTES # (AUTO) 1.7 10^3/uL (1.5-3.5); LYMPHOCYTES % (AUTO) 23.9 %; MEAN CORPUSCULAR HEMOGLOBIN 31.9 pg (27.0-31.0); MEAN CORPUSCULAR HGB CONC 33.1 g/dL (32.0-36.0); MEAN CORPUSCULAR VOLUME 96.4 fL (80.0-94.0); MEAN PLATELET VOLUME 10.7 fL (7.4-11.4); MONOCYTES # (AUTO) 0.7 10^3/uL (0.0-1.0); MONOCYTES % (AUTO) 9.6 %; NEUTROPHILS # (AUTO) 4.5 10^3/uL (1.5-6.6); PLT - PLATELET COUNT 324 10^3/uL (130-450); RED BLOOD COUNT 5.24 10^6/uL (4.70-6.10); RED CELL DISTRIBUTION WIDTH 13.3 % (12.0-15.0); WHITE BLOOD COUNT 7.1 x10^3/uL (4.8-10.8)
[2022-02-14 18:30] LABS: CREATININE,URINE 51.3 mg/dL; MICROALBUM/CREATININE RATIO,UR 272.9 ug/mg (<30.0)
[2022-02-14 18:35] LABS: ALBUMIN 4.1 g/dL (3.2-5.5); ALBUMIN/GLOBULIN RATIO 1.5 (1.0-2.2); ALKALINE PHOSPHATASE 63 IU/L (42-121); ALT ALANINE AMINOTRANSFERASE 21 IU/L (10-60); AST ASPARTATE AMINOTRANSFERASE 21 IU/L (10-42); BILIRUBIN,TOTAL 0.7 mg/dL (0.2-1.0); BUN - BLOOD UREA NITROGEN 21 mg/dL (6-20); CARBON DIOXIDE - CO2 29 mmol/L (21-32); CHLORIDE 100 mmol/L (101-111); CHOL/HDL RATIO 2.7 (<5.0); CHOLESTEROL 128 mg/dL; CREATININE 1.3 mg/dL (0.6-1.2); GFR - MDRD 54 (>89); GLUCOSE 160 mg/dL (70-100); HDL CHOLESTEROL 48 mg/dL; LDL CHOLESTEROL,CALCULATED 69 mg/dL; LDL/HDL RATIO 1.4 (<3.6); POTASSIUM 4.6 mmol/L (3.5-5.0); SODIUM 135 mmol/L (135-145); TOTAL PROTEIN 6.9 g/dL (6.7-8.2); TRIGLYCERIDES 57 mg/dL; VLDL CHOLESTEROL 11 mg/dL
[2022-02-14 18:46] LABS: THYROID STIMULATING HORMONE 1.44 uIU/mL (0.34-5.60)
[2022-02-14 21:43] LABS: ESTIMATED AVERAGE GLUCOSE 137 mg/dL (70-100); HEMOGLOBIN A1c% 6.4 % (4.27-6.07)
== END 2022-02-14 11:30 | disposition home or self-care (01) ==
LOC: LAB.N 11:29
PROVIDERS: ATTEND Nurse Practitioner
DX: E11.9 Type 2 diabetes mellitus without complications (principal); E78.5 Hyperlipidemia, unspecified; R53.83 Other fatigue
CPT/HCPCS: 36415; 80053; 80061; 82043; 82570; 82607; 83036; 83721; 84443; 85025

== ENCOUNTER 2022-06-14 14:42 | Outpatient (CLI) | payer MEDICARE, BC ==
[2022-06-14 17:59] LABS: BASOPHILS # (AUTO) 0.1 10^3/uL (0.0-0.1); BASOPHILS % (AUTO) 1.1 %; EOSINOPHILS # (AUTO) 0.3 10^3/uL (0.0-0.7); EOSINOPHILS % (AUTO) 3.8 %; HCT - HEMATOCRIT 50.6 % (42.0-52.0); HGB - HEMOGLOBIN 16.4 g/dL (14.0-18.0); LYMPHOCYTES # (AUTO) 2.6 10^3/uL (1.5-3.5); LYMPHOCYTES % (AUTO) 31.4 %; MEAN CORPUSCULAR HEMOGLOBIN 31.5 pg (27.0-31.0); MEAN CORPUSCULAR HGB CONC 32.4 g/dL (32.0-36.0); MEAN CORPUSCULAR VOLUME 97.1 fL (80.0-94.0); MEAN PLATELET VOLUME 10.6 fL (7.4-11.4); MONOCYTES # (AUTO) 0.7 10^3/uL (0.0-1.0); MONOCYTES % (AUTO) 9.1 %; NEUTROPHILS # (AUTO) 4.4 10^3/uL (1.5-6.6); NEUTROPHILS % (AUTO) 54.5 %; PLT - PLATELET COUNT 314 10^3/uL (130-450); RED BLOOD COUNT 5.21 10^6/uL (4.70-6.10); RED CELL DISTRIBUTION WIDTH 13.6 % (12.0-15.0); WHITE BLOOD COUNT 8.1 x10^3/uL (4.8-10.8)
[2022-06-14 18:50] LABS: ALBUMIN 4.1 g/dL (3.2-5.5); ALBUMIN/GLOBULIN RATIO 1.4 (1.0-2.2); BILIRUBIN,TOTAL 0.9 mg/dL (0.2-1.0); CALCIUM 11.3 mg/dL (8.5-10.3); CREATININE 1.3 mg/dL (0.6-1.2); POTASSIUM 4.3 mmol/L (3.5-5.0)
[2022-06-14 18:57] LABS: CREATININE,URINE 131.7 mg/dL; MICROALBUM/CREATININE RATIO,UR 137.4 ug/mg (<30.0); MICROALBUMIN,URINE 18.1 mg/dL (0-300.0)
[2022-06-14 20:32] LABS: ESTIMATED AVERAGE GLUCOSE 143 mg/dL (70-100); HEMOGLOBIN A1c% 6.6 % (4.27-6.07)
== END 2022-06-14 14:43 | disposition home or self-care (01) ==
LOC: LAB.N 14:42
PROVIDERS: ATTEND Nurse Practitioner
DX: E11.9 Type 2 diabetes mellitus without complications (principal)
CPT/HCPCS: 36415; 80053; 82043; 82150; 82570; 83036; 83690; 85025

== ENCOUNTER 2023-02-09 11:06 | Outpatient (CLI) | payer MEDICARE, BC ==
[2023-02-09 17:43] LABS: BASOPHILS # (AUTO) 0.1 10^3/uL (0.0-0.1); BASOPHILS % (AUTO) 0.7 %; EOSINOPHILS # (AUTO) 0.3 10^3/uL (0.0-0.7); EOSINOPHILS % (AUTO) 3.4 %; HCT - HEMATOCRIT 52.2 % (42.0-52.0); LYMPHOCYTES # (AUTO) 1.8 10^3/uL (1.5-3.5); LYMPHOCYTES % (AUTO) 18.2 %; MEAN CORPUSCULAR HEMOGLOBIN 32.1 pg (27.0-31.0); MEAN CORPUSCULAR HGB CONC 32.6 g/dL (32.0-36.0); MEAN CORPUSCULAR VOLUME 98.7 fL (80.0-94.0); MONOCYTES # (AUTO) 0.7 10^3/uL (0.0-1.0); MONOCYTES % (AUTO) 6.8 %; NEUTROPHILS # (AUTO) 6.9 10^3/uL (1.5-6.6); NEUTROPHILS % (AUTO) 70.6 %; PLT - PLATELET COUNT 445 10^3/uL (130-450); RED BLOOD COUNT 5.29 10^6/uL (4.70-6.10); RED CELL DISTRIBUTION WIDTH 12.5 % (12.0-15.0); WHITE BLOOD COUNT 9.8 x10^3/uL (4.8-10.8)
[2023-02-09 18:01] LABS: ALBUMIN 3.7 g/dL (3.2-5.5); ALBUMIN/GLOBULIN RATIO 1.4 (1.0-2.2); ALKALINE PHOSPHATASE 67 IU/L (42-121); ALT ALANINE AMINOTRANSFERASE 35 IU/L (10-60); AST ASPARTATE AMINOTRANSFERASE 23 IU/L (10-42); BILIRUBIN,TOTAL 0.5 mg/dL (0.2-1.0); BUN - BLOOD UREA NITROGEN 17 mg/dL (6-20); CALCIUM 9.5 mg/dL (8.5-10.3); CARBON DIOXIDE - CO2 27 mmol/L (21-32); CHLORIDE 103 mmol/L (101-111); CHOL/HDL RATIO 3.2 (<5.0); CHOLESTEROL 135 mg/dL; GFR - MDRD 73 (>89); GLUCOSE 155 mg/dL (74-104); HDL CHOLESTEROL 42 mg/dL; LDL CHOLESTEROL,CALCULATED 66 mg/dL; LDL/HDL RATIO 1.6 (<3.6); POTASSIUM 4.7 mmol/L (3.5-4.5); SODIUM 136 mmol/L (135-145); TOTAL PROTEIN 6.3 g/dL (6.4-8.9); TRIGLYCERIDES 135 mg/dL (48-352); VLDL CHOLESTEROL 27 mg/dL
[2023-02-09 18:13] LABS: THYROID STIMULATING HORMONE 1.69 uIU/mL (0.34-5.60)
== END 2023-02-09 11:07 | disposition home or self-care (01) ==
LOC: LAB.N 11:06
PROVIDERS: ATTEND Nurse Practitioner
DX: I10 Essential (primary) hypertension (principal); E78.5 Hyperlipidemia, unspecified; I48.91 Unspecified atrial fibrillation
CPT/HCPCS: 36415; 80053; 80061; 83721; 84443; 85025

== ENCOUNTER 2023-02-23 10:24 | Outpatient (CLI) | payer MEDICARE, BC | END 2023-02-23 10:25 | disposition home or self-care (01) | LOC: DI 10:24 | PROVIDERS: ATTEND Nurse Practitioner | DX: I34.0 Nonrheumatic mitral (valve) insufficiency (principal); I48.91 Unspecified atrial fibrillation | CPT/HCPCS: 93306 ==